=== PATIENT | female | born 1975 | race Hispanic/Latino ===

== ENCOUNTER 2018-01-22 17:38 | Emergency (ER) | payer OTHER ==
[2018-01-22 18:11] VITALS: BMI 30.9
[2018-01-22] MEDS ORDERED: TDAP Vaccine 0.5 mL Syr IM ONE (18:19)
--- NOTE | 2018-01-22 18:22 | ED PDOC ---
Arrival/HPI - General Chief Complaint: Abnormal Skin Integrity Time Seen by Provider: 01/22/18 18:09 Historian: Patient - History of Present Illness Narrative History of Present Illness (Text): 01/22/18 18:19 42 y/o female, no significant pmh, nkda, last tetanus doesn't remember, c/o fall on the rt. humerus and rib region but sustained the laceration on the rt. upper extremity. Pt. stated that she fall, landed on the rt. humerus and rib region about 1 hour again, sustained laceration on the rt. arm against the steps?, no LOC, no neck/back/abdominal injury or pain, able to recall the whole event, no numbness or tingling, no chest pain or shortness of breath, no night sweat, no other medical or psychological complaints. Past Medical History - Provider Review Nursing Documentation Reviewed: Yes - Past History Past History: No Previous - Psychiatric Hx Depression: No Hx Emotional Abuse: No Hx Physical Abuse: No Hx Substance Use: No - Past Surgical History Past Surgical History: Non-Contributing - Suicidal Assessment Feels Threatened In Home Enviroment: No Family/Social History - Physician Review Nursing Documentation Reviewed: Yes Family/Social History: Unknown Family HX Smoking Status: Current Some Days Smoker Hx Alcohol Use: Yes Frequency of alcohol use: Socially Hx Substance Use: No Hx Substance Use Treatment: No Allergies/Home Meds Allergies/Adverse Reactions: Allergies No Known Allergies Allergy (Verified 04/19/12 12:28) Home Medications: Home Meds Medication Instructions Recorded Confirmed Ibuprofen 400 mg PO 04/19/12 04/19/12 Review of Systems - Review of Systems Constitutional: absent: Fatigue, Fevers Eyes: absent: Vision Changes ENT: absent: Hearing Changes Respiratory: absent: SOB, Cough Cardiovascular: absent: Chest Pain Gastrointestinal: absent: Abdominal Pain, Nausea, Vomiting Musculoskeletal: Arthralgias, Myalgias. absent: Back Pain, Neck Pain, Joint Swelling Skin: Laceration. absent: Rash, Pruritis, Skin Lesions Neurological: absent: Headache, Dizziness Psychiatric: absent: Anxiety, Depression, Suicidal Ideation Physical Exam Vital Signs Temp BP 01/22/18 18:10 97.5 F L 127/75 Pain Distress: Moderate Mental Status: Positive for: Alert and Oriented X 3 - Systems Exam Head: Present: Atraumatic, Normocephalic, Other (Facial: no bony tenderness or swelling, no abrasion/laceration. ). No: Tenderness, Contusion, Swelling, Ecchymosis, Abrasion, Laceration Pupils: Present: PERRL Extroacular Muscles: Present: EOMI Conjunctiva: Present: Normal Ears: Present: NORMAL TM, Normal Canal. No: Erythema Mouth: Present: Moist Mucous Membranes Pharnyx: Present: Normal. No: ERYTHEMA, EXUDATE, TONSILS ENLARGED, Soft Palate/Uvular Edema Nose (External): Present: Atraumatic. No: Abrasion, Contusion, Laceration, Lesions Nose (Internal): Present: Normal Inspection, No Active Bleeding. No: Rhinorrhea, Septal Hematoma, Epistaxis Neck: Present: Normal Range of Motion, Trachea Midline. No: Meningeal Signs, MIDLINE TENDERNESS, Paraspinal Tenderness, Lymphadenopathy Respiratory/Chest: Present: Clear to Auscultation, Good Air Exchange, Tender to Palpation (+ttp on the rt. lower later rib cage region with no ecchymosis or skin injury/laceration/abrasion. ). No: Respiratory Distress, Accessory Muscle Use, Wheezes, Decreased Breath Sounds, Rales, Retracting, Rhonchi, Tachypneic Cardiovascular: Present: Regular Rate and Rhythm, Normal S1, S2. No: Murmurs Abdomen: No: Tenderness, Distention, Peritoneal Signs, Rebound, Guarding Back: Present: Normal Inspection. No: CVA Tenderness, Midline Tenderness, Paraspinal Tenderness, Pain with Leg Raise, Decubitus Ulcer Upper Extremity: Present: Normal Inspection, Normal ROM, NORMAL PULSES, Neurovascularly Intact, Capillary Refill < 2s, Norm 2-Pt Discrimination, Other (RUE: +ttp on the distal humerus region with mid medial inner aspect noted to have approx. 7cm intermediate depth laceration but no bony tenderness, FROM without limitation, sensation intact, motor 5/5, +radial pulse, capillary refill< 2 seconds, normal 2pts. discrimination, no finger/hand/scaphoid/wrist/forearm tenderness or swelling, ). No: Cyanosis, Edema, Temperature Abnormalties, Deformity Lower Extremity: Present: Normal Inspection. No: Edema Neurological: Present: GCS=15, CN II-XII Intact, Speech Normal, Motor Func Grossly Intact, Gait Normal, Memory Normal Skin: Present: Warm, Dry, Normal Color. No: Rashes Lymphatic: No: Cervical Adenopathy Psychiatric: Present: Alert, Oriented x 3, Normal Insight, Normal Concentration Medical Decision Making ED Course and Treatment: 01/22/18 18:24 -tdap/IV ancef 2gm/toradol -xrays -Observe and reassess 01/22/18 18:27 -Pt. request ER provider to close the laceration and understand that she would get a scar which she stated she doesn't care. PROCEDURE: LACERATION REPAIR Performed by the emergency provider Location: rt. humerus inner aspect region Length: 7 cm Description: {"clean wound edges","no foreign bodies"} Distal CMS: Normal. No deficits. Neurovascularly intact. Anesthesia: Lidocaine 1% with 1cc Preparation: The wound was cleaned with NS 2000cc and clean with Betadyne. The area was prepped and draped in the usual sterile fashion. Exploration: The wound was explored and no foreign bodies were found. Procedure: The wound was closed with 5-0 vicryl and 5-0 nylon. There was {good / appropriate / adequate / loose} approximation. In total, 7 sutures of 5-0 vicryl for deep subq and 18 sutures of 5-0 nylon were used. Post-Procedure: Good closure and hemostasis. The patient tolerated the procedure well and there were no complications. CSM remains intact. Post procedure dressing applied. 01/22/18 20:31 -Urine hcg is negative -Rt. rib and chest xray: No visible acute rib fracture. No pneumothorax. -Rt. humerus xray show No acute osseous abnormality. -Rt. elbow xray: Soft tissue swelling . No acute osseous abnormality. -Wound sutured well, sebastian wrap -Discharge home with keflex, bacitracin oinment, motrin, keep the dressing dry and clean for 2 days then clean the wound twice daily, sutures need to be removed by day 10, avoid strenuous exercise or activity, follow up with your own pmd and general surgeon within 2 days for wound check, return to the ER for any new or worsening signs or symptoms. - RAD Interpretation Radiology Orders: 01/22/18 18:17 ELBOW RIGHT 3 VIEWS ROUTINE [RAD] Stat HUMERUS RIGHT [RAD] Stat RIBS RIGHT & PA CHEST [RAD] Stat -Rt. rib and chest xray: EXAM: CR right Ribs, 3 View. CLINICAL HISTORY: Pain/fall COMPARISON: None provided. FINDINGS: LUNGS: The visualized lungs appear essentially clear. PLEURAL SPACES: No evidence of pneumothorax. No pleural effusion. BONES: No visible acute rib fracture. IMPRESSION: No visible acute rib fracture. No pneumothorax. Electronically signed on Jan 22, 2018 8:25:07 PM EDT by: Vahid Terry M.D., MBA Certified By ABR & CBC[employer] Fellowship Trained MRI and CT Specialist -Rt. humerus xray EXAM: CR right Humerus, 2 View. CLINICAL HISTORY: FALL COMPARISON: None provided. FINDINGS: BONES: No acute fracture or aggressive appearing osseous lesion. JOINTS: No dislocation. The joint spaces are normal. SOFT TISSUES: The soft tissues are unremarkable. IMPRESSION: No acute osseous abnormality. Electronically signed on Jan 22, 2018 8:26:10 PM EDT by: Vahid Terry M.D., MBA Certified By ABR & CBC[employer] Trained MRI and CT Specialist -Rt. elbow xray: EXAM: CR right elbow, 3 View. CLINICAL HISTORY: Fall COMPARISON: None provided. FINDINGS: BONES: No acute fracture or aggressive appearing osseous lesion. JOINTS: The joint spaces appear within normal limits. No dislocation. No radiographic evidence of a joint effusion. SOFT TISSUES: Soft tissue swelling is noted. IMPRESSION: Soft tissue swelling . No acute osseous abnormality. Electronically signed on Jan 22, 2018 8:32:30 PM EDT by: Vahid Terry M.D., MARGARITA Certified By ABR & CBC[employer] Trained MRI and CT Specialist Traveling Sales Representative: Radiologist - Medication Orders Current Medication Orders: Cefazolin Sodium (Ancef) 2 gm IVPB STAT STA; Protocol Stop: 01/22/18 18:18 Ketorolac Tromethamine (Toradol) 30 mg IVP STAT STA Stop: 01/22/18 18:18 - PA / RADIO DIRECTOR / Resident Statement MD/DO has reviewed & agrees with the documentation as recorded. Disposition/Present on Arrival - Present on Arrival Any Indicators Present on Arrival: No History of DVT/PE: No History of Uncontrolled Diabetes: No Urinary Catheter: No History of Decub. Ulcer: No History Surgical Site Infection Following: None - Disposition Have Diagnosis and Disposition been Completed?: Yes Diagnosis: Fall, Arm laceration, Contusion Disposition: HOME/ ROUTINE Disposition Time: 21:17 Patient Plan: Discharge Patient Problems: Current Active Problems Problem Status Onset Fall Acute Arm laceration Acute Condition: IMPROVED Discharge Instructions (ExitCare): Contusion (DC) Additional Instructions: -Discharge home with keflex, bacitracin oinment, motrin, keep the dressing dry and clean for 2 days then clean the wound twice daily, sutures need to be removed by day 10, avoid strenuous exercise or activity, follow up with your own pmd and general surgeon within 2 days for wound check, return to the ER for any new or worsening signs or symptoms. Prescriptions: Bacitracin Ointment [Bacitracin] 1 appful TOP BID #15 g Cephalexin [cephalexin] 500 mg PO QID #32 cap Ibuprofen [Motrin] 600 mg PO QID PRN #30 tab PRN Reason: Other Referrals: Liliya Oglesby MD [Primary Care Provider] - Follow up with primary Forms: [employer] [facility] (Congolese), WORK NOTE
[2018-01-22 18:26] VITALS: O2SAT 100
[2018-01-22] MEDS ORDERED: ceFAZolin IV 2 gm in 50 mL D5W IVPB SCH (18:30)
[2018-01-22 23:46] VITALS: RESP 17
[2018-01-22 23:51] VITALS: BP 139/90; PULSE 98; TEMP 98
--- NOTE | 2018-01-23 09:28 | RAD ---
PROCEDURE: Radiographs of the right humerus. HISTORY: laceration and fall COMPARISON: None. FINDINGS: BONES: Normal. No fracture or focal lesion. SOFT TISSUES: Normal. OTHER FINDINGS: None. IMPRESSION: Normal radiographs of right humerus.
--- NOTE | 2018-01-23 09:28 | RAD ---
Date of service: 01/22/2018 PROCEDURE: Radiographs of the Chest and Right Ribs. HISTORY: fall and pain COMPARISON: None available. TECHNIQUE: Frontal radiograph of the chest and multiple oblique radiographs of the right ribs were obtained. FINDINGS: RIGHT RIBS: No fracture or focal lesion visualized. LUNGS: Clear. PLEURA: No pneumothorax or pleural fluid. CARDIOVASCULAR: Normal cardiac size. No pulmonary vascular congestion. No aortic atherosclerotic calcification present OTHER FINDINGS: None. IMPRESSION: Unremarkable radiographs of the chest and right ribs. No right rib fracture.
--- NOTE | 2018-01-23 09:29 | RAD ---
Date of service: 01/22/2018 PROCEDURE: Radiographs of the right elbow. HISTORY: fall COMPARISON: No prior. FINDINGS: BONES: Normal. No fracture. JOINTS: Normal. No osteoarthritis. SOFT TISSUES: Normal. JOINT EFFUSION: None. OTHER FINDINGS: None. IMPRESSION: Unremarkable radiographs of the right elbow.
== END 2018-01-22 21:20 | disposition home or self-care (01) ==
LOC: ED 17:38
DX: S41.111A Laceration without foreign body of right upper arm, initial encounter (principal); W19.XXXA Unspecified fall, initial encounter; Z23 Encounter for immunization
CPT/HCPCS: 12002; 71101; 73060; 73080; 90471; 90715; 96374; 99283; J0690; J1885

== ENCOUNTER 2018-02-03 13:33 | Emergency (ER) | payer OTHER ==
[2018-02-03 13:50] VITALS: BMI 29.6
[2018-02-03 13:54] VITALS: BP 148/62; PULSE 78; RESP 18; TEMP 98.2; O2SAT 99
[2018-02-03] MEDS ORDERED: Bacitracin 500 Units/gm Oint Foilpak UD TOP ONE (14:01)
--- NOTE | 2018-02-03 14:04 | ED PDOC ---
Arrival/HPI - General Chief Complaint: Suture/Staple Removal Historian: Patient - History of Present Illness Narrative History of Present Illness (Text): 02/03/18 14:01 42yo female with no pmhx who present to ED for suture removal that was placed here on 01/22/18 to her right upper arm. She denies fever, redness, discharge from the wound. Past Medical History - Provider Review Nursing Documentation Reviewed: Yes - Past History Past History: No Previous - Infectious Disease Hx of Infectious Diseases: None - Cardiac Hx Cardiac Disorders: No - Pulmonary Hx Respiratory Disorders: No - Neurological Hx Neurological Disorder: No - HEENT Hx HEENT Disorder: No - Renal Hx Renal Disorder: No - Endocrine/Metabolic Hx Endocrine Disorders: No - Hematological/Oncological Hx Blood Disorders: No - Integumentary Hx Dermatological Disorder: No - Musculoskeletal/Rheumatological Hx Musculoskeletal Disorders: No - Gastrointestinal Hx Gastrointestinal Disorders: No - Genitourinary/Gynecological Hx Genitourinary Disorders: No - Psychiatric Hx Psychophysiologic Disorder: No Hx Substance Use: No - Past Surgical History Past Surgical History: Non-Contributing - Suicidal Assessment Feels Threatened In Home Enviroment: No Family/Social History - Physician Review Nursing Documentation Reviewed: Yes Family/Social History: Unknown Family HX Smoking Status: Current Some Days Smoker Hx Alcohol Use: Yes Hx Substance Use: No Hx Substance Use Treatment: No Allergies/Home Meds Allergies/Adverse Reactions: Allergies No Known Allergies Allergy (Verified 02/03/18 13:57) Home Medications: Home Meds Medication Instructions Recorded Confirmed RX: Ibuprofen 400 mg PO 04/19/12 04/19/12 Review of Systems - Physician Review All systems were reviewed & negative as marked: Yes - Review of Systems Constitutional: Normal Eyes: Normal ENT: Normal Respiratory: Normal Cardiovascular: Normal Gastrointestinal: Normal Genitourinary Female: Normal Musculoskeletal: Normal Skin: Other (suture removal) Neurological: Normal Endocrine: Normal Hemo/Lymphatic: Normal Psychiatric: Normal Physical Exam Vital Signs Reviewed: Yes Vital Signs Temp Pulse Resp BP Pulse Ox 02/03/18 13:54 98.2 F 78 18 148/62 99 Temperature: Afebrile Blood Pressure: Normal Pulse: Regular Respiratory Rate: Normal Appearance: Positive for: Well-Appearing, Non-Toxic, Comfortable Pain Distress: None Mental Status: Positive for: Alert and Oriented X 3 - Systems Exam Head: Present: Atraumatic, Normocephalic Pupils: Present: PERRL Extroacular Muscles: Present: EOMI Conjunctiva: Present: Normal Mouth: Present: Moist Mucous Membranes Neck: Present: Normal Range of Motion Respiratory/Chest: Present: Clear to Auscultation, Good Air Exchange. No: Respiratory Distress, Accessory Muscle Use Cardiovascular: Present: Regular Rate and Rhythm, Normal S1, S2. No: Murmurs Abdomen: No: Tenderness, Distention, Peritoneal Signs Back: Present: Normal Inspection Upper Extremity: Present: Normal Inspection. No: Cyanosis, Edema Lower Extremity: Present: Normal Inspection. No: Edema Neurological: Present: GCS=15, CN II-XII Intact, Speech Normal Skin: Present: Warm, Dry, Normal Color, Other (Sutures noted to right upper dorsal arm with scab noted in place. No erythema. No duscharge. No sign of in fection.). No: Rashes Psychiatric: Present: Alert, Oriented x 3, Normal Insight, Normal Concentration Medical Decision Making ED Course and Treatment: 02/03/18 18:24 PT presented to ED for suture removal from her right upper arm. suture area was cleaned with betadine. 8 sutures was removed. The end of the sutures does not appear well approximated. it was however healing well. No sign infection was noted. PT will end up with a scar. Disposition/Present on Arrival - Present on Arrival Any Indicators Present on Arrival: No History of DVT/PE: No History of Uncontrolled Diabetes: No Urinary Catheter: No History of Decub. Ulcer: No History Surgical Site Infection Following: None - Disposition Have Diagnosis and Disposition been Completed?: Yes Diagnosis: Visit for suture removal Disposition: HOME/ ROUTINE Disposition Time: 14:05 Patient Plan: Discharge Condition: STABLE Discharge Instructions (ExitCare): Stitches Removal Additional Instructions: Keep wound clean and dry Follow up with your doctor Return to ED for any new or worsening symptoms Referrals: Clau Duran MD [Medical Doctor] - Follow up with primary Forms: [employer] (Kosovan)
== END 2018-02-03 14:20 | disposition home or self-care (01) ==
LOC: ED 13:33
DX: Z48.02 Encounter for removal of sutures (principal)